=== PATIENT | female | born 1990 | race Caucasian/White ===

== ENCOUNTER 2018-01-19 12:52 | Inpatient (IN) | payer BC, OTHER ==
[2018-01-24] MEDS ORDERED: LACTATED RINGERS 1,000 ML IV PRN (22:03)
[2018-01-24] MEDS ORDERED: METHYLERGONOVINE MALEATE 0.2 MG/ML SOL IM PRN (22:03)
[2018-01-24] MEDS ORDERED: MEPIVACAINE HCL 1% MPF 30 ML/VIAL SOL INFIL PRN (22:03)
[2018-01-24] MEDS ORDERED: SODIUM CHLORIDE 0.9% FLUSH 10 ML SOL IV PRN (22:03)
[2018-01-24] MEDS ORDERED: FENTANYL 100MCG/2ML SOL IV PRN (22:03)
[2018-01-24] MEDS ORDERED: OXYTOCIN 10000 MU/ML SOL IM PRN (22:03)
[2018-01-24] MEDS ORDERED: CARBOPROST 250 MCG/ML SOL IM PRN (22:03)
[2018-01-24] MEDS: SODIUM CHLORIDE 0.9% FLUSH 10 ML SOL IV SCH (22:20)
[2018-01-24 22:32] LABS: BASOPHILS % (AUTO) 1 % (0-3); EOSINOPHILS % (AUTO) 2 % (0-9); HEMATOCRIT 35 % (35-47); HEMOGLOBIN 11.9 gm/dl (12.0-15.5); LYMPHOCYTES % (AUTO) 18.1 % (10-50); MEAN CORPUSCULAR HEMOGLOBIN 30.9 pg (27.0-32.0); MEAN CORPUSCULAR HGB CONC 33.7 gm/dl (32.0-36.0); MEAN CORPUSCULAR VOLUME 92 fL (81-99); MONOCYTES % (AUTO) 9.2 % (0-12); NEUTROPHILS % (AUTO) 70.4 % (37-80)
[2018-01-25] MEDS ORDERED: TEMAZEPAM 15MG 15 MG CAP PO PRN (04:11)
[2018-01-25] MEDS ORDERED: BENZOCAINE/MENTHOL 1 SPR TOP PRN (04:11)
[2018-01-25] MEDS ORDERED: ACETAMINOPHEN 325 MG PO PRN (04:11)
[2018-01-25] MEDS ORDERED: BISACODYL 10 MG SUP PR PRN (04:11)
[2018-01-25] MEDS ORDERED: METHYLERGONOVINE MALEATE 0.2 MG TAB PO PRN (04:11)
[2018-01-25] MEDS ORDERED: FLEET ENEMA PR PRN (04:11)
[2018-01-25] MEDS ORDERED: WITCH HAZEL 1 EA PAD TOP PRN (04:11)
[2018-01-25] MEDS: IBUPROFEN 600 MG TAB PO PRN ×3 (05:41→18:16)
[2018-01-25] MEDS: SODIUM CHLORIDE 0.9% FLUSH 10 ML SOL IV SCH ×2 (05:42→16:22)
[2018-01-25] MEDS ORDERED: FOLIC ACID 1 MG TAB ONE (11:32)
[2018-01-25] MEDS ORDERED: MULTIVITAMIN2 1 EA TAB ONE (11:32)
[2018-01-25] MEDS: FOLIC ACID 1 MG TAB PO SCH (11:33)
[2018-01-25] MEDS: MULTIVITAMIN2 1 EA TAB PO SCH (11:35)
[2018-01-25] MEDS: DOCUSATE SODIUM 100 MG SGL PO SCH ×2 (11:36→21:41)
[2018-01-25] MEDS ORDERED: DIPHENHYDRAMINE 25 MG CAP PO PRN (19:39)
[2018-01-25 20:06] VITALS: RESP 16; O2SAT 96
[2018-01-26] MEDS: IBUPROFEN 600 MG TAB PO PRN (04:28)
[2018-01-26 07:24] VITALS: BP 117/72; PULSE 80; TEMP 98.5
[2018-01-26] MEDS: DOCUSATE SODIUM 100 MG SGL PO SCH (08:39)
[2018-01-26] MEDS: MULTIVITAMIN2 1 EA TAB PO SCH (08:39)
[2018-01-26] MEDS: FOLIC ACID 1 MG TAB PO SCH (08:39)
== END 2018-01-26 14:40 | disposition home or self-care (01) | DRG 807 ==
LOC: OB 01-24 21:50 → OBSVTOIN 01-24 21:50
PROVIDERS: ADMIT Family Medicine; ATTEND Family Medicine
PROC: 10D07Z6 Extraction of Products of Conception, Vacuum, Via Natural or Artificial Opening (ICD-10-PCS; principal; 2018-01-25)
PROC: 0KQM0ZZ Repair Perineum Muscle, Open Approach (ICD-10-PCS; 2018-01-25)
PROC: 6A550ZT Pheresis of Cord Blood Stem Cells, Single (ICD-10-PCS; 2018-01-25)
DX: O80 Encounter for full-term uncomplicated delivery (principal); Z37.0 Single live birth; Z3A.40 40 weeks gestation of pregnancy
CPT/HCPCS: 36415; 59025; 85018; 85025; J0670; J2590; A9270-GY